=== PATIENT | male | born 1960 | race Caucasian/White ===

== ENCOUNTER 2016-07-10 11:33 | Inpatient (IN) | payer OTHER ==
[~2016-07-10] VITALS: Ht 182.9 cm; Wt 96.0 kg
[2016-07-10] MEDS ORDERED: LACTATED RINGERS 1,000 ML IV SCH (12:17)
[2016-07-10 12:42] VITALS: BP 171/98
[2016-07-10] MEDS ORDERED: LEVO150T5 PO (13:00)
[2016-07-10] MEDS ORDERED: BUPIVACAINE/PF 0.5% ONE (13:11)
[2016-07-10] MEDS ORDERED: PAPAVERINE 30 MG/ML, 2ML ONE (13:11)
[2016-07-10] MEDS ORDERED: PROTAMINE SULFATE 10 MG/ML, 5ML ONE (13:11)
[2016-07-10] MEDS ORDERED: THROMBIN 20,000 UNIT VIAL TP ONE (13:12)
[2016-07-10] MEDS ORDERED: FENTANYL PF 250 MCG/5ML ONE (13:12)
[2016-07-10] MEDS ORDERED: HEPARIN 1,000 UNITS/ML, 30ML ONE (13:12)
[2016-07-10] MEDS ORDERED: ONDANSETRON 2MG/ML, 2ML ONE (13:57)
[2016-07-10] MEDS ORDERED: ROCURONIUM 10 MG/ML ONE (13:57)
[2016-07-10] MEDS ORDERED: LABETALOL 20 MG/4 ML ONE (13:57)
[2016-07-10] MEDS ORDERED: DEXAMETHASONE 4 MG/ML, 1ML ONE (13:57)
[2016-07-10] MEDS ORDERED: PROPOFOL 10 MG/ML, 20ML ONE (13:57)
[2016-07-10] MEDS ORDERED: CEFAZOLIN 1,000 MG ONE (13:57)
[2016-07-10] MEDS ORDERED: HEPARIN 1,000 UNITS/ML, 10ML IV ONE (14:00)
[2016-07-10] MEDS ORDERED: BUPIVACAINE/PF-EPI 0.25% 1:200K INFIL ONE (14:30)
[2016-07-10] MEDS ORDERED: LIDOCAINE/PF 1.5%-EPI 1:200K, 30ML ONE (14:44)
[2016-07-10] MEDS ORDERED: BUPIVACAINE/PF-EPI 0.25% 1:200K ONE (14:44)
[2016-07-10] MEDS ORDERED: LIDOCAINE/PF 1%, 30ML ONE (14:46)
[2016-07-10] MEDS ORDERED: MEPERIDINE/PF 25MG/0.5ML IVPush PRN (15:00)
[2016-07-10] MEDS ORDERED: hydrALAzine 20 MG/ML, 1ML IV PRN ×2 (15:00→20:30)
[2016-07-10] MEDS ORDERED: MIDAZOLAM 1 MG/ML, 2ML IV PRN (15:00)
[2016-07-10] MEDS ORDERED: ONDANSETRON 2MG/ML, 2ML IVPush PRN (15:00)
[2016-07-10] MEDS ORDERED: OXYcodone 5 MG/5 ML ORAL.SOL UDC PO PRN (15:00)
[2016-07-10] MEDS ORDERED: METOCLOPRAMIDE 5 MG/ML, 2ML IV PRN (15:00)
[2016-07-10] MEDS ORDERED: PROMETHAZINE 25 MG/ML, 1ML IV PRN (15:00)
[2016-07-10] MEDS ORDERED: LABETALOL 5MG/ML, 20ML IV PRN (15:00)
[2016-07-10] MEDS ORDERED: LIDOCAINE 1%, 20ML INFIL ONE (15:15)
[2016-07-10] MEDS ORDERED: OXYcodone 5 MG/5 ML ORAL.SOL UDC ONE (16:05)
[2016-07-10] MEDS ORDERED: ACETAMINOPHEN 650 MG/20.3 ML UDC ONE (16:05)
[2016-07-10] MEDS ORDERED: FENTANYL PF 100 MCG/2ML ONE (16:05)
[2016-07-10] MEDS: FENTANYL PF 100 MCG/2ML IV PRN ×2 (16:07→16:15)
[2016-07-10] MEDS ORDERED: HYDROmorphone 2 MG/ML, 1ML ONE (16:15)
[2016-07-10] MEDS: HYDROmorphone 1 MG/ML, 1ML IV PRN ×4 (16:20→16:53)
[2016-07-10] MEDS ORDERED: ASPIRIN 325 MG TABLET EC PO ONE (16:30)
[2016-07-10] MEDS ORDERED: ACETAMINOPHEN 325 MG TABLET PO PRN ×2 (17:30→20:00)
[2016-07-10] MEDS ORDERED: NICOTINE 14MG/24 HR PATCH.TD24 TD ONE (17:30)
[2016-07-10 19:12] VITALS: BP 111/75
[2016-07-10] MEDS ORDERED: ONDANSETRON 2MG/ML, 2ML IV PRN (20:00)
[2016-07-10] MEDS ORDERED: NITROPRUSSIDE 50 MG in DEXTROSE 5% 248 ML IV SCH (20:00)
[2016-07-10] MEDS ORDERED: LABETALOL 5MG/ML, 20ML IVPush PRN (20:00)
[2016-07-10] MEDS: HYDROcodone/APAP 5/325 TABLET PO PRN (20:18)
[2016-07-10] MEDS ORDERED: ZOLPIDEM 5MG TABLET PO PRN (20:30)
[2016-07-10] MEDS: morphine SULFATE 10 MG/ML, 1ML IV PRN (21:27)
[2016-07-10] MEDS: CEFAZOLIN PMX 2GM/100ML 100 ML IVPB SCH (21:27)
[2016-07-10] MEDS: LORazepam 1MG TABLET PO PRN (21:27)
[2016-07-10] MEDS: LACTATED RINGERS 1,000 ML IV SCH (21:27)
[2016-07-10 23:15] VITALS: BP 115/79
[2016-07-11] MEDS: HYDROcodone/APAP 5/325 TABLET PO PRN ×3 (00:08→08:26)
[2016-07-11] MEDS: morphine SULFATE 10 MG/ML, 1ML IV PRN ×2 (00:54→05:03)
[2016-07-11] MEDS: LORazepam 1MG TABLET PO PRN ×2 (03:02→09:27)
[2016-07-11 04:05] VITALS: BP 108/77
[2016-07-11] MEDS: CEFAZOLIN PMX 2GM/100ML 100 ML IVPB SCH (05:03)
[2016-07-11] MEDS: LACTATED RINGERS 1,000 ML IV SCH (05:03)
[2016-07-11 05:06] VITALS: BP 108/75
[2016-07-11] MEDS ORDERED: METOPROLOL TARTRATE 25 MG TABLET PO SCH (06:00)
[2016-07-11] MEDS ORDERED: LEVOTHYROXINE 150 MCG TABLET PO SCH (06:00)
[2016-07-11 06:58] VITALS: BP 118/72
[2016-07-11] MEDS ORDERED: ASPIRIN 325 MG TABLET EC PO SCH (09:00)
[2016-07-11] MEDS ORDERED: HYDR-3240 PO (10:04)
[2016-07-11] MEDS ORDERED: ASPI-621 PO (10:04)
[2016-07-11] MEDS ORDERED: METO25TA35 PO (10:05)
[2016-07-11] MEDS ORDERED: SIMV40TA3 PO (10:05)
== END 2016-07-11 10:20 | disposition home or self-care (01) | DRG 39 ==
LOC: ORIP 11:33 → 4NOR 18:31 → DCLOUNGE 07-11 09:58
PROVIDERS: ADMIT Surgery; ATTEND Surgery
PROC: 03CM0ZZ Extirpation of Matter from Right External Carotid Artery, Open Approach (ICD-10-PCS; 2016-07-10)
PROC: 03CK0ZZ Extirpation of Matter from Right Internal Carotid Artery, Open Approach (ICD-10-PCS; 2016-07-10)
PROC: 03UH0KZ Supplement Right Common Carotid Artery with Nonautologous Tissue Substitute, Open Approach (ICD-10-PCS; 2016-07-10)
PROC: 03UK0KZ Supplement Right Internal Carotid Artery with Nonautologous Tissue Substitute, Open Approach (ICD-10-PCS; 2016-07-10)
PROC: 03UM0KZ Supplement Right External Carotid Artery with Nonautologous Tissue Substitute, Open Approach (ICD-10-PCS; 2016-07-10)
PROC: 03CH0ZZ Extirpation of Matter from Right Common Carotid Artery, Open Approach (ICD-10-PCS; principal; 2016-07-10 13:30)
DX: I65.21 Occlusion and stenosis of right carotid artery (principal); E03.9 Hypothyroidism, unspecified; F41.9 Anxiety disorder, unspecified; Z88.5 Allergy status to narcotic agent; Z72.0 Tobacco use; Z79.899 Other long term (current) drug therapy
CPT/HCPCS: 36415; 86850; 86900; 93005; C1729; J0690; J1100; J1170; J1644; J2405; J2704; J2720; J3010; J3490; C1768; J2270; J2440; J7120

== ENCOUNTER 2016-08-06 13:37 | Emergency (ER) | payer OTHER ==
[~2016-08-06] VITALS: Ht 182.9 cm; Wt 89.4 kg
[~2016-08-06 13:37] MED LIST: ASPI-621 PO; HYDR-3240 PO; LEVO150T5 PO; METO25TA35 PO; SIMV40TA3 PO
[2016-08-06] MEDS ORDERED: SODIUM CHLORIDE FLUSH 10ML SYR IVF ONE (14:00)
[2016-08-06] MEDS ORDERED: DULO30CA2 PO (14:08)
[2016-08-06] MEDS ORDERED: MORPHINE SULFATE 4 MG/ML, 1ML ONE (14:24)
[2016-08-06] MEDS ORDERED: ONDANSETRON 2MG/ML, 2ML ONE (14:24)
[2016-08-06 14:26] LABS: BLOOD UREA NITROGEN 8 mg/dL (7-18)
[2016-08-06] MEDS ORDERED: SODIUM CHLORIDE 0.9% 1,000ML IVBOLUS ONE ×2 (14:30→15:00)
[2016-08-06] MEDS ORDERED: LORazepam 2 MG/ML, 1ML IVPush ONE (14:30)
[2016-08-06] MEDS ORDERED: ONDANSETRON 2MG/ML, 2ML IVPush ONE (14:30)
[2016-08-06] MEDS ORDERED: morphine SULFATE 10 MG/ML, 1ML IVPush ONE (14:30)
[2016-08-06] MEDS ORDERED: SODIUM CHLORIDE 0.9% 1,000 ML IV ONE (14:33)
[2016-08-06 14:35] LABS: IS PT STATUS REG ER OR PRE ER? YES
[2016-08-06 14:57] LABS: ASPARTATE AMINO TRANSFERASE 149 U/L (15-37)
[2016-08-06] MEDS ORDERED: LORazepam 2 MG/ML, 1ML ONE (15:00)
[2016-08-06 15:12] VITALS: BP 131/91
== END 2016-08-06 16:45 | disposition home or self-care (01) ==
LOC: ED 16:24
DX: R51 Headache (principal); R55 Syncope and collapse; I10 Essential (primary) hypertension; E78.00 Pure hypercholesterolemia, unspecified; E03.9 Hypothyroidism, unspecified; F17.200 Nicotine dependence, unspecified, uncomplicated
CPT/HCPCS: 36415; 70450; 70496; 70498; 71010; 80053; 84484; 85025; 85610; 93005; 96361; 96374; 96375; 99285; J2060; J2270; J2405; J7030